=== PATIENT | male | born 1950 | race Caucasian/White ===

== ENCOUNTER → 2019-02-14 15:59 | Outpatient (BNVA) | payer MEDICARE, OTHER, SELFPAY | PROVIDERS: PCP Specialist; Visit Provider Specialist | DX: Z48.89 Encounter for other specified surgical aftercare (principal); Z96.659 Presence of unspecified artificial knee joint | CPT/HCPCS: 73560; 73565 ==

== ENCOUNTER → 2019-10-24 11:41 | Outpatient (BNVA) | payer MEDICARE, OTHER, SELFPAY | PROVIDERS: PCP Specialist; Visit Provider Specialist | DX: Z96.651 Presence of right artificial knee joint (principal) | CPT/HCPCS: 73560; 73565 ==

== ENCOUNTER → 2022-02-15 15:05 | Outpatient (BNVA) | payer MEDICARE, OTHER, SELFPAY | PROVIDERS: PCP Family Medicine; Visit Provider Nurse Practitioner Family | DX: R10.11 Right upper quadrant pain (principal) | CPT/HCPCS: 80053; 82150; 85025; 86140 ==